=== PATIENT | male | born 1980 | race Caucasian/White ===

== ENCOUNTER 2021-07-17 16:14 | Emergency (ER) | payer MEDICAID ==
[~2021-07-17] VITALS: Ht 180.3 cm; Wt 97.7 kg
[2021-07-17 17:09] VITALS: BP 171/90
== END 2021-07-17 17:22 | disposition home or self-care (01) ==
LOC: ER 16:15
DX: F15.90 Other stimulant use, unspecified, uncomplicated (principal); Z20.822 Contact with and (suspected) exposure to COVID-19; F17.200 Nicotine dependence, unspecified, uncomplicated
CPT/HCPCS: 87635; 99283; C9803